=== PATIENT | male | born 2000 | race Hispanic/Latino ===

== ENCOUNTER 2021-08-12 11:07 | Emergency (ER) | payer SELFPAY ==
--- NOTE | 2021-08-12 12:38 | ER ---
Nurse's Notes [facility] Name: Samuel Jones Age: 20 yrs Sex: Male : 2000 Arrival Date: 08/12/2021 Time: 11:10 Bed 9 Private MD: Diagnosis: Unspecified contact dermatitis, unspecified cause Presentation: 08/12 12:29 Chief complaint: Patient states: Left arm swelling and JULIA rash since yesterday, denies vg1 itching today. Coronavirus screen: Vaccine status: Patient reports being unvaccinated. Client denies travel out of the [place] in the last 14 days. Ebola Screen: Patient denies exposure to infectious person. Patient denies travel to an Ebola-affected area in the 21 days before illness onset. Initial Sepsis Screen: Does the patient meet any 2 criteria? No. Patient's initial sepsis screen is negative. Does the patient have a suspected source of infection? No. Patient's initial sepsis screen is negative. Risk Assessment: Do you want to hurt yourself or someone else? Patient reports no desire to harm self or others. Onset of symptoms was July 12, 2021. 12:29 Method Of Arrival: Ambulatory vg1 12:29 Acuity: JOHN 4 vg1 Triage Assessment: 12:30 General: Appears in no apparent distress. comfortable, Behavior is calm, cooperative. vg1 Pain: Complains of pain in right arm and left arm Pain currently is 3 out of 10 on a pain scale. EENT: No signs and/or symptoms were reported regarding the EENT system. Derm: Rash noted that is red, raised, on right arm and left arm. 13:01 Bite description: by UNKNOWN. ap3 13:02 Bite description: bite sustained to left arm and right arm. ap3 13:02 Bite description: animal information: vaccination(s) is not applicable. ap3 Historical: - Allergies: 12:30 No Known Allergies; vg1 - Home Meds: 12:30 None [Active]; vg1 - PMHx: 12:30 None; vg1 - PSHx: 12:30 None; vg1 - Immunization history:: Client reports having NOT received the Covid vaccine. - Social history:: Smoking status: Patient reports the use of cigarette tobacco products, denies chronic smoking, but will smoke occasionally. Screenin:01 Abuse screen: Denies threats or abuse. Nutritional screening: No deficits noted. ap3 Tuberculosis screening: No symptoms or risk factors identified. Fall Risk None identified. Assessment: 13:01 Derm: Skin is intact, Skin is pink, warm \T\ dry. ap3 Vital Signs: 12:29 BP 122 / 67; Pulse 83; Resp 16; Temp 98.5; Pulse Ox 98% on R/A; Weight 106.59 kg; vg1 Height 5 ft. 11 in. (180.34 cm); Pain 3/10; 12:29 Body Mass Index 32.78 (106.59 kg, 180.34 cm) vg1 ED Course: 11:10 Patient arrived in ED. as 11:13 Toby Pope DO is Attending Physician. ms3 12:30 Triage completed. vg1 12:30 Arm band placed on. vg1 12:37 Aguila Alas DO is Referral Physician. ms3 13:01 Leisa Jordan, RN is Primary Nurse. ap3 13:01 No provider procedures requiring assistance completed. Patient did not have IV access ap3 during this emergency room visit. 13:02 Patient has correct armband on for positive identification. Call light in reach. Side ap3 rails up X 1. Administered Medications: 13:01 Drug: predniSONE 60 mg Route: PO; ap3 13:03 Follow up: Response: No adverse reaction ap3 Medication: 13:01 VIS not applicable for this client. ap3 Outcome: 12:38 Discharge ordered by MD. ms3 13:02 Discharged to home ambulatory. ap3 13:02 Condition: good 13:02 Discharge instructions given to patient, Instructed on discharge instructions, follow up and referral plans. medication usage, Demonstrated understanding of instructions, follow-up care, medications, Prescriptions given X 1. 13:02 Patient left the ED. ap3 Signatures: Ellen Black Amanda, RN RN ap3 Shakila Sandoval RN RN vg1 Toby Pope DO DO ms3
--- NOTE | 2021-08-12 12:38 | EDPHYS ---
Physician Documentation [facility] Name: Samuel Jones Age: 20 yrs Sex: Male : 2000 Arrival Date: 08/12/2021 Time: 11:10 Bed 9 Private MD: ED Physician Toby Pope HPI: 08/12 12:38 This 20 yrs old Male presents to ER via Ambulatory with complaints of Arm ms3 Problem - swelling, Rash, Insect Bite. 12:38 The patient or guardian complains of a rash, urticarial. The complaints affect the left ms3 arm and right arm. Context: The problem was sustained at home. Onset: The symptoms/episode began/occurred acutely, 5 day(s) ago. Treatment prior to arrival includes: no previous treatment. Modifying factors: The symptoms are alleviated by nothing. the symptoms are aggravated by nothing. Associated signs and symptoms: Pertinent positives: itching. Severity of symptoms: At their worst the symptoms were moderate, in the emergency department the symptoms are unchanged. Historical: - Allergies: 12:30 No Known Allergies; vg1 - Home Meds: 12:30 None [Active]; vg1 - PMHx: 12:30 None; vg1 - PSHx: 12:30 None; vg1 - Immunization history:: Client reports having NOT received the Covid vaccine. - Social history:: Smoking status: Patient reports the use of cigarette tobacco products, denies chronic smoking, but will smoke occasionally. ROS: 12:38 Constitutional: Negative for fever, and chills. Eyes: Negative for injury, pain, ms3 redness, and discharge, Neck: Negative for injury, pain, and swelling, Cardiovascular: Negative for chest pain, and palpitations. Respiratory: Negative for shortness of breath, cough, wheezing, and pleuritic chest pain, Abdomen/GI: Negative for abdominal pain, nausea, vomiting, diarrhea, and constipation, MS/Extremity: Negative for injury and deformity. 12:38 Skin: Positive for rash. 12:38 All other systems are negative. Exam: 12:38 Constitutional: This is a well developed, well nourished patient who is awake, alert, ms3 and in no acute distress. Eyes: Pupils equal round and reactive to light, extra-ocular motions intact. Lids and lashes normal. Conjunctiva and sclera are non-icteric and not injected. Periorbital areas with no swelling, redness, or edema. ENT: Nares patent. No nasal discharge, no septal abnormalities noted. Tympanic membranes are normal and external auditory canals are clear. Oropharynx with no redness, swelling, or masses, exudates, or evidence of obstruction, uvula midline. Mucous membranes moist. Chest/axilla: Normal chest wall appearance and motion. Nontender with no deformity. Cardiovascular: Regular rate and rhythm with a normal S1 and S2. No gallops, murmurs, or rubs. Normal PMI, no JVD. No pulse deficits. Respiratory: Lungs have equal breath sounds bilaterally, clear to auscultation and percussion. No rales, rhonchi or wheezes noted. No increased work of breathing, no retractions or nasal flaring. Abdomen/GI: Soft, non-tender, with normal bowel sounds. No distension or tympany. No guarding or rebound. No evidence of tenderness throughout. 12:38 Skin: rash a moderate rash is noted, rash can be described as urticarial. Vital Signs: 12:29 BP 122 / 67; Pulse 83; Resp 16; Temp 98.5; Pulse Ox 98% on R/A; Weight 106.59 kg; vg1 Height 5 ft. 11 in. (180.34 cm); Pain 3/10; 12:29 Body Mass Index 32.78 (106.59 kg, 180.34 cm) vg1 MDM: 12:37 Patient medically screened. ms3 12:38 Differential diagnosis: Contact dermatitis vs insect bites. Data reviewed: vital signs, ms3 nurses notes, and as a result, I will discharge patient. Counseling: I had a detailed discussion with the patient and/or guardian regarding: the historical points, exam findings, and any diagnostic results supporting the discharge/admit diagnosis, the need for outpatient follow up, to return to the emergency department if symptoms worsen or persist or if there are any questions or concerns that arise at home. ED course: Discussed PE findings with patient. Patient to follow up with PMD in 2-3 days. Patient understands/ agrees with plan. All questions answered. Return precautions discussed to include worsening symptoms, or any other concerns. Patient given Rx for Prednisone PO and instructed on Benadryl use.. Administered Medications: 13:01 Drug: predniSONE 60 mg Route: PO; ap3 13:03 Follow up: Response: No adverse reaction ap3 Disposition Summary: 08/12/21 12:38 Discharge Ordered Location: Home ms3 Condition: Stable ms3 Diagnosis - Unspecified contact dermatitis, unspecified cause ms3 Followup: ms3 - With: Aguila Alas DO - When: 2 - 3 days - Reason: Re-evaluation by your physician Discharge Instructions: - Discharge Summary Sheet ms3 - Contact Dermatitis ms3 Forms: - Medication Reconciliation Form ms3 - Thank You Letter ms3 - Antibiotic Education ms3 - Prescription Opioid Use ms3 Prescriptions: - Prednisone 20 mg Oral Tablet - take 2 tablets by ORAL route once daily for 5 days; 10 tablet; Refills: 0, ms3 Product Selection Permitted Signatures: Leisa Jordan RN RN ap3 Shakila Sandoval RN RN vg1 Toby Pope DO DO ms3
[2021-08-12] MEDS ORDERED: predniSONE 20 MG TAB ONE (13:05)
[2021-08-12 14:31] VITALS: BP 122/67; TEMP 98.5; O2SAT 98
== END 2021-08-12 13:02 | disposition home or self-care (01) ==
LOC: ER 11:07
DX: L25.9 Unspecified contact dermatitis, unspecified cause (principal); F17.210 Nicotine dependence, cigarettes, uncomplicated
CPT/HCPCS: J7512